=== PATIENT | male | born 1995 | race Caucasian/White ===

== ENCOUNTER 2017-12-22 23:48 | Emergency (ER) | payer SELFPAY ==
[2017-12-23] MEDS ORDERED: PERCOCET 5/325 PO PRN (02:25)
[2017-12-23] MEDS ORDERED: XANAX PO ONE (02:25)
[2017-12-23] MEDS ORDERED: XYLOCAINE 1% MPF 5 mL INFILTRATI ONE (02:26)
--- NOTE | 2017-12-23 02:29 | Emergency Department Report ---
- General Chief complaint: Wound/Laceration Stated complaint: ABCESS RT AXILLA Time Seen by Provider: 12/23/17 02:16 Source: patient Mode of arrival: Ambulatory Limitations: No Limitations - History of Present Illness Initial comments: 22-year-old -[place] male comes in for abscess under his right arm times one month. Patient reports it is been red and swollen and painful. Patient has no other past medical history currently takes no medications and has no known drug allergies. MD complaint: abscess/boil -: month(s) (1) Location: RUE Severity: severe Severity scale (0 -10): 7 Quality: burning, stabbing, constant Consistency: constant Improves with: none Worsens with: movement Context: none Associated symptoms: denies other symptoms - Related Data Previous Rx's Medication Instructions Recorded Last Taken Type Sulfamethoxazole/Trimethoprim 1 each PO BID #20 tablet 12/23/17 Unknown Rx [Bactrim DS TAB] oxyCODONE /ACETAMINOPHEN [Percocet 1 tab PO Q6H PRN #12 tablet 12/23/17 Unknown Rx 5/325 mg] Allergies Allergy/AdvReac Type Severity Reaction Status Date / Time No Known Allergies Allergy Unverified 12/23/17 00:14 Abscess Boil HPI - HPI Chief Complaint: Wound/Laceration Stated Complaint: ABCESS RT AXILLA Time Seen by Provider: 12/23/17 02:16 Home Medications: Previous Rx's Medication Instructions Recorded Last Taken Type Sulfamethoxazole/Trimethoprim 1 each PO BID #20 tablet 12/23/17 Unknown Rx [Bactrim DS TAB] oxyCODONE /ACETAMINOPHEN [Percocet 1 tab PO Q6H PRN #12 tablet 12/23/17 Unknown Rx 5/325 mg] Allergies/Adverse Reactions: Allergies Allergy/AdvReac Type Severity Reaction Status Date / Time No Known Allergies Allergy Unverified 12/23/17 00:14 ED Review of Systems ROS: Stated complaint: ABCESS RT AXILLA Other details as noted in HPI Constitutional: denies: chills, fever Eyes: denies: eye pain, eye discharge, vision change ENT: denies: ear pain, throat pain Respiratory: denies: cough, shortness of breath, wheezing Cardiovascular: denies: chest pain, palpitations Endocrine: no symptoms reported Gastrointestinal: denies: abdominal pain, nausea, diarrhea Genitourinary: denies: urgency, dysuria Musculoskeletal: denies: back pain, joint swelling, arthralgia Skin: other (swollen lesion under her right axillary). denies: rash, lesions Neurological: denies: headache, weakness, paresthesias Psychiatric: denies: anxiety, depression Hematological/Lymphatic: denies: easy bleeding, easy bruising ED Past Medical Hx - Past Medical History Previous Medical History?: No - Surgical History Past Surgical History?: No - Social History Smoking Status: Former Smoker Substance Use Type: None - Medications Home Medications: Home Medications Medication Instructions Recorded Confirmed Last Taken Type Sulfamethoxazole/Trimethoprim 1 each PO BID #20 tablet 12/23/17 Unknown Rx [Bactrim DS TAB] oxyCODONE /ACETAMINOPHEN [Percocet 1 tab PO Q6H PRN #12 tablet 12/23/17 Unknown Rx 5/325 mg] ED Physical Exam - General Limitations: No Limitations General appearance: alert, in no apparent distress - Head Head exam: Present: atraumatic, normocephalic - Eye Eye exam: Present: normal appearance - ENT ENT exam: Present: mucous membranes moist - Neck Neck exam: Present: normal inspection - Respiratory Respiratory exam: Present: normal lung sounds bilaterally. Absent: respiratory distress - Cardiovascular Cardiovascular Exam: Present: regular rate, normal rhythm. Absent: systolic murmur, diastolic murmur, rubs, gallop - GI/Abdominal GI/Abdominal exam: Present: soft, normal bowel sounds - Rectal Rectal exam: Present: deferred - Extremities Exam Extremities exam: Present: normal inspection - Back Exam Back exam: Present: normal inspection - Neurological Exam Neurological exam: Present: alert, oriented X3 - Psychiatric Psychiatric exam: Present: normal affect, normal mood - Skin Skin exam: Present: warm, dry, intact, normal color, erythema, other (abscess right axillary that is swollen and tender and red. It is fluctuant in the center.). Absent: rash ED Course Vital Signs 12/23/17 12/23/17 00:14 02:37 Temperature 98.2 F Pulse Rate 79 Respiratory 20 18 Rate Blood Pressure 106/87 O2 Sat by Pulse 98 Oximetry - I & D Right Arm Type of Procedure: Simple Site: right axillary Blade Size: 11 I & D Procedure: betadine prep, sterile drapes applied, sterile dressing applied , gauze wick placed Progress: Patient tolerated procedure well. ED Medical Decision Making - Medical Decision Making Patient has been evaluated by this provider fast track. I discussed with patient that we would need to do an incision and drain. Discussed with patient not give him a Percocet and a small amount of Xanax to calm him down. I did discuss the patient they'll use a little bit of lidocaine 1 salve express some of the fluid out of the abscess. I discussed the patient most likely I will need to pack the abscess and have him return in 3 days to have the packing removed. I discussed the patient I'll place him antibiotics as well. In obtain a culture patient verbalized understanding Critical care attestation.: If time is entered above; I have spent that time in minutes in the direct care of this critically ill patient, excluding procedure time. ED Disposition Clinical Impression: Abscess of axilla, right Disposition: DC-01 TO HOME OR SELFCARE Is pt being admited?: No Does the pt Need Aspirin: No Condition: Stable Instructions: Abscess (ED) Additional Instructions: Please take antibiotics as prescribed. Take pain medication as prescribed. Please follow up on Tuesday to have packing removed and replaced. Change dressing daily. Keep wound clean and dry. Prescriptions: oxyCODONE /ACETAMINOPHEN [Percocet 5/325 mg] 1 tab PO Q6H PRN #12 tablet PRN Reason: Pain, Moderate (4-6) Sulfamethoxazole/Trimethoprim [Bactrim DS TAB] 1 each PO BID #20 tablet Referrals: VIOLETA RABAGO MD [Primary Care Provider] - 3-5 Days Forms: Work/School Release Form(ED), Accompanied Note
[2017-12-23] MEDS ORDERED: PERCOCET 5/325 PO ONE (02:36)
[2017-12-23 03:44] VITALS: BP 110/85
== END 2017-12-23 03:44 | disposition home or self-care (01) ==
LOC: ED 23:48
DX: L02.411 Cutaneous abscess of right axilla (principal); Z87.891 Personal history of nicotine dependence
CPT/HCPCS: 87116

== ENCOUNTER 2017-12-26 11:25 | Emergency (ER) | payer OTHER ==
--- NOTE | 2017-12-26 12:50 | Emergency Department Report ---
Chief Complaint: Skin/Abscess/Foreign Body Stated Complaint: ABCESS Time Seen by Provider: 12/26/17 12:45 - HPI History of Present Illness: The patient is a 22-year-old male who presents for evaluation of pain and abscess to the right axilla. He states that he was informed to present for repacking of a right axilla abscess. He states compliance with antibiotic prescribed to him after incision and drainage of the abscess 4 days ago. - Exam Vital Signs: Vital Signs 12/26/17 11:32 Temperature 97.4 F L Pulse Rate 68 Respiratory 16 Rate Blood Pressure 137/84 O2 Sat by Pulse 99 Oximetry MSE screening note: Focused history and physical exam performed. Due to findings the following was ordered: ED Disposition for MSE Condition: Stable
--- NOTE | 2017-12-26 13:10 | Emergency Department Report ---
ED Recheck HPI - General Chief Complaint: Skin/Abscess/Foreign Body Stated Complaint: ABCESS Time Seen by Provider: 12/26/17 12:45 Source: patient, family Mode of arrival: Ambulatory Limitations: No Limitations - History of Present Illness Initial Comments: Patient was here seen by provider for incision and drainage on 12/23/2017. The patient had incision and drainage and wound packed. He was placed on Percocet and Bactrim DS. Patient is here today for follow-up to have packing removed. Patient will large amount of drainage. Pain is 2 /10 on movement. Patient denies any fever or chills MD Complaint: wound re-check Onset/Timin -: days(s) Initial Visit For: abscess Returns Today for: wound recheck Symptoms Since Prior Visit: no new symptoms, worsening discharge Context: planned re-check Associated Symptoms: denies: fever, chills, chest pain, shortness of breath, rash, malaise, nasuea, abdominal pain Treatments Prior to Arrival: Given Antibiotics on, Given Pain Meds on - Related Data Previous Rx's Medication Instructions Recorded Last Taken Type Sulfamethoxazole/Trimethoprim 1 each PO BID #20 tablet 12/23/17 Unknown Rx [Bactrim DS TAB] oxyCODONE /ACETAMINOPHEN [Percocet 1 tab PO Q6H PRN #12 tablet 12/23/17 Unknown Rx 5/325 mg] Ibuprofen [Motrin] 600 mg PO Q8H PRN #15 tablet 12/26/17 Unknown Rx Allergies Allergy/AdvReac Type Severity Reaction Status Date / Time No Known Allergies Allergy Unverified 12/23/17 00:14 ED Review of Systems ROS: Stated complaint: ABCESS Other details as noted in HPI Comment: All other systems reviewed and negative Constitutional: no symptoms reported Respiratory: no symptoms reported Cardiovascular: denies: chest pain, palpitations, dyspnea on exertion, edema, syncope, paroxysmal nocturnal dyspnea Musculoskeletal: denies: back pain, joint swelling, arthralgia, myalgia Skin: other (abscess with drainage) Neurological: denies: headache ED Past Medical Hx - Past Medical History Previous Medical History?: No Hx Hypertension: Yes Additional medical history: AXILLARY ABSCESS - Surgical History Past Surgical History?: No - Family History Family history: no significant - Social History Smoking Status: Never Smoker Substance Use Type: Marijuana - Medications Home Medications: Home Medications Medication Instructions Recorded Confirmed Last Taken Type Sulfamethoxazole/Trimethoprim 1 each PO BID #20 tablet 12/23/17 Unknown Rx [Bactrim DS TAB] oxyCODONE /ACETAMINOPHEN [Percocet 1 tab PO Q6H PRN #12 tablet 12/23/17 Unknown Rx 5/325 mg] Ibuprofen [Motrin] 600 mg PO Q8H PRN #15 tablet 12/26/17 Unknown Rx ED Physical Exam - General Limitations: No Limitations General appearance: alert, in no apparent distress - Head Head exam: Present: atraumatic, normocephalic, normal inspection - Eye Eye exam: Present: normal appearance, PERRL, EOMI. Absent: periorbital swelling , periorbital tenderness Pupils: Present: normal accommodation - ENT ENT exam: Present: normal exam, normal orophraynx, mucous membranes moist - Neck Neck exam: Present: normal inspection, full ROM. Absent: tenderness, meningismus, lymphadenopathy, thyromegaly - Respiratory Respiratory exam: Present: normal lung sounds bilaterally. Absent: respiratory distress, chest wall tenderness - Cardiovascular Cardiovascular Exam: Present: regular rate, normal rhythm, normal heart sounds. Absent: systolic murmur, diastolic murmur - Extremities Exam Extremities exam: Present: normal inspection, full ROM, normal capillary refill , other (No CCE. +2 pulses). Absent: tenderness, pedal edema, joint swelling, calf tenderness - Neurological Exam Neurological exam: Present: alert, oriented X3, normal gait - Psychiatric Psychiatric exam: Present: normal affect, normal mood - Skin Skin exam: Present: warm, dry, other (patient with abscess to right axilla with packing. Large amount of drainage from site. Tender to palpate. Minimal erythema. Minimal induration) ED Course Vital Signs 12/26/17 11:32 Temperature 97.4 F L Pulse Rate 68 Respiratory 16 Rate Blood Pressure 137/84 O2 Sat by Pulse 99 Oximetry - Reevaluation(s) Reevaluation #1: 12/26/17 15:44 Wound care to right axilla . Wound culture positive for gram-positive cocci. Packing removed from wound and irrigated. Cleansed with iodine and normal saline. Wound repacked. Sterile nonadhesive dressing placed to wound ED Recheck MDM - Differential Diagnosis Wound Recheck, Cellultitis Recheck - Medical Decision Making ED course: Patient presented to the emergency room today for wound recheck and possible packing removal. He is found to have large amount of copious drainage coming from one side. Wound care with normal saline and iodine. Would irrigated with normal saline and cleansed with iodine around the wound and cleansed with saline and repacked with iodoform packing and sterile nonadhesive gauze dressing placed the site. Patient instructed to return for days for possible packing removal .I was able to express a small amount of pus from wound. Patient remains on Bactrim and his wound culture positive for gram- positive cocci. Tolerated procedure well and discharged home to continue Bactrim and will give prescription for Motrin. Critical care attestation.: If time is entered above; I have spent that time in minutes in the direct care of this critically ill patient, excluding procedure time. ED Disposition Clinical Impression: Wound cellulitis, Visit for wound care, Change or removal of wound packing Disposition: DC-01 TO HOME OR SELFCARE Is pt being admited?: No Does the pt Need Aspirin: No Condition: Stable Instructions: Abscess (ED), Acute Wound Care (ED) Additional Instructions: Continue taking antibiotic as prescribed Follow-up with your primary care physician in 2 days and follow-up at emergency room and 4 days for reevaluation of wound and possible removal of pack in Keep affected area clean and dry. Followed discharge instruction on acute wound care . Please return to emergency room if you develop increasing redness, streaking, fever, difficulty moving in and the right upper extremity and increase in pain. Prescriptions: Ibuprofen [Motrin] 600 mg PO Q8H PRN #15 tablet PRN Reason: Pain Referrals: return to the, emergency room [Other] - 12/30/17 [facility] [Outside] - 2-3 Days Forms: Work/School Release Form(ED)
[2017-12-26] MEDS ORDERED: NACL 0.9% IR ONE (13:13)
[2017-12-26 16:11] VITALS: BP 127/80
== END 2017-12-26 16:11 | disposition home or self-care (01) ==
LOC: ED 11:25
DX: L03.111 Cellulitis of right axilla (principal); I10 Essential (primary) hypertension; F12.10 Cannabis abuse, uncomplicated
CPT/HCPCS: 99282

== ENCOUNTER 2018-01-06 11:56 | Emergency (ER) | payer SELFPAY ==
--- NOTE | 2018-01-06 13:47 | Emergency Department Report ---
ED Recheck HPI - General Chief Complaint: Wound/Laceration Stated Complaint: ABSCESS Time Seen by Provider: 01/06/18 13:46 Source: patient Mode of arrival: Ambulatory Limitations: No Limitations - History of Present Illness Initial Comments: Patient here for wound recheck. He was seen on 12/23/2017 and was started on Bactrim, oxycodone and ibuprofen for left axilla abscess that was already draining. He came back on 12/26/2017 and was draining extensively. Wound cleansed and packing placed and patient and told to return in 4 days for removal of packing. Patient here reports that packing fell out yesterday. He said he took 4 days worth of Bactrim and he lost the Bactrim and he wouldn't like to have a refill. He was initially prescribed Bactrim on 12/23/2017 when he was seen. He denies any pain at present. He states drainage has stopped. Tetanus vaccine is up-to-date. Denies any fever or chills and no complaints except for lives in Bactrim. Complaint: wound re-check, medication refill request Onset/Timin -: days(s) Initial Visit For: cellulitis Returns Today for: wound recheck, request for prescription Symptoms Since Prior Visit: no new symptoms Context: planned re-check Associated Symptoms: none Treatments Prior to Arrival: Given Antibiotics on, Given Pain Meds on - Related Data Previous Rx's Medication Instructions Recorded Last Taken Type oxyCODONE /ACETAMINOPHEN [Percocet 1 tab PO Q6H PRN #12 tablet 12/23/17 Unknown Rx 5/325 mg] Ibuprofen [Motrin] 600 mg PO Q8H PRN #15 tablet 12/26/17 Unknown Rx Sulfamethoxazole/Trimethoprim 1 each PO BID 6 Days #12 tablet 01/06/18 Unknown Rx [Bactrim DS TAB] Allergies Allergy/AdvReac Type Severity Reaction Status Date / Time No Known Allergies Allergy Unverified 12/23/17 00:14 ED Review of Systems ROS: Stated complaint: ABSCESS Other details as noted in HPI Comment: All other systems reviewed and negative Constitutional: no symptoms reported Respiratory: no symptoms reported Cardiovascular: denies: chest pain, palpitations, edema, syncope Gastrointestinal: denies: abdominal pain, nausea, vomiting Musculoskeletal: denies: joint swelling, arthralgia Skin: other (wound left axilla getting better) Neurological: denies: headache ED Past Medical Hx - Past Medical History Previous Medical History?: Yes Hx Hypertension: Yes Additional medical history: AXILLARY ABSCESS - Surgical History Past Surgical History?: No - Family History Family history: hypertension - Social History Smoking Status: Never Smoker Substance Use Type: Marijuana - Medications Home Medications: Home Medications Medication Instructions Recorded Confirmed Last Taken Type oxyCODONE /ACETAMINOPHEN [Percocet 1 tab PO Q6H PRN #12 tablet 12/23/17 Unknown Rx 5/325 mg] Ibuprofen [Motrin] 600 mg PO Q8H PRN #15 tablet 12/26/17 Unknown Rx Sulfamethoxazole/Trimethoprim 1 each PO BID 6 Days #12 tablet 01/06/18 Unknown Rx [Bactrim DS TAB] ED Physical Exam - General Limitations: No Limitations General appearance: alert, in no apparent distress - Head Head exam: Present: atraumatic, normocephalic, normal inspection - Eye Eye exam: Present: normal appearance, PERRL, EOMI Pupils: Present: normal accommodation - Neck Neck exam: Present: normal inspection, full ROM. Absent: tenderness, meningismus, lymphadenopathy - Respiratory Respiratory exam: Present: normal lung sounds bilaterally. Absent: respiratory distress, chest wall tenderness - Cardiovascular Cardiovascular Exam: Present: regular rate, normal rhythm, normal heart sounds. Absent: systolic murmur, diastolic murmur - Extremities Exam Extremities exam: Present: normal inspection, full ROM, normal capillary refill , other (no clubbing, cyanosis or edema. Positive pulses to all extremities and no neurovascular compromise). Absent: tenderness, pedal edema, joint swelling, calf tenderness - Back Exam Back exam: Present: normal inspection, full ROM. Absent: tenderness - Neurological Exam Neurological exam: Present: alert, oriented X3, normal gait, reflexes normal. Absent: motor sensory deficit - Psychiatric Psychiatric exam: Present: normal affect, normal mood - Skin Skin exam: Present: warm, dry, intact, normal color, other (patient with abscess left axilla with minimal cellulitis, minimal tenderness without palpate , no induration and no drainage noted. He still has open into the center were incision and drainage was done. No pack in at site.) ED Course Vital Signs 01/06/18 12:15 Temperature 98.4 F Pulse Rate 61 Respiratory 16 Rate Blood Pressure 131/83 O2 Sat by Pulse 100 Oximetry - Reevaluation(s) Reevaluation #1: 01/06/18 14:27 Left axilla cleansed with normal saline and sterile gauze site. ED Recheck MDM - Medical Decision Making ED course: Here for wound recheck. He said the packing fell out yesterday. He was seen initially on 12/23/2017 and was given Bactrim DS which she said he took 4 days worth and he lost the the medication. He came back on 12/26/2017 because he says one was straining a lot and ear was packed after cleaning with normal saline and patient was told to return for reevaluation. He is here today he said his Bactrim to be refilled because he did not complete dosage. Patient pain is better, drainage very minimal and very minimal cellulitis noted around site. I discussed the patient did overfill his Bactrim and he needs to keep affected ear clean and dry. Patient discharged home with prescriptions for Bactrim DS and to follow up with his primary care physician and 3-5 days Critical care attestation.: If time is entered above; I have spent that time in minutes in the direct care of this critically ill patient, excluding procedure time. ED Disposition Clinical Impression: Encounter for wound re-check Disposition: DC-01 TO HOME OR SELFCARE Is pt being admited?: No Does the pt Need Aspirin: No Condition: Stable Instructions: Acute Wound Care (ED), Wound Healing and Your Diet (ED), Wound Infection (ED) Additional Instructions: Please complete Bactrim DS as previously ordered. All of the primary care physician in 3-5 days and if he do not have one you can follow-[facility] with [facility] for primary care visit Prescriptions: Sulfamethoxazole/Trimethoprim [Bactrim DS TAB] 1 each PO BID 6 Days #12 tablet Referrals: PRIMARY CARE, [Primary Care Provider] - 3-5 Days [facility] [Outside] - 3-5 Days Forms: Work/School Release Form(ED)
[2018-01-06 14:42] VITALS: BP 124/76
== END 2018-01-06 14:45 | disposition home or self-care (01) ==
LOC: ED 11:56
DX: Z48.00 Encounter for change or removal of nonsurgical wound dressing (principal); F12.10 Cannabis abuse, uncomplicated; I10 Essential (primary) hypertension